=== PATIENT | female | born 1950 | race Caucasian/White ===

== ENCOUNTER 2021-05-27 12:35 | Emergency (ER) | payer MEDICARE, OTHER ==
[~2021-05-27] VITALS: Ht 157.5 cm; Wt 72.7 kg
[2021-05-27] MEDS ORDERED: LORazepam 1 MG TABLET PO ONE (13:15)
[2021-05-27 13:20] VITALS: BP 129/74
== END 2021-05-27 13:46 | disposition home or self-care (01) ==
LOC: EMS 12:40
DX: F41.9 Anxiety disorder, unspecified (principal); E03.9 Hypothyroidism, unspecified; F20.9 Schizophrenia, unspecified
CPT/HCPCS: 99283

== ENCOUNTER 2021-06-03 14:46 | Emergency (ER) | payer MEDICARE, OTHER ==
[~2021-06-03] VITALS: Ht 157.5 cm; Wt 72.7 kg
[2021-06-03 15:04] VITALS: BP 135/82
[2021-06-03] MEDS ORDERED: HYDR50CA7 PO (15:28)
[2021-06-03] MEDS ORDERED: HydrOXYzine PAMOATE 50 MG CAPSULE PO ONE (15:30)
== END 2021-06-03 15:47 | disposition home or self-care (01) ==
LOC: EMS 14:54
DX: F41.9 Anxiety disorder, unspecified (principal); F20.9 Schizophrenia, unspecified
CPT/HCPCS: 99283